=== PATIENT | female | born 1935 | race Caucasian/White ===

== ENCOUNTER 2016-09-09 16:48 | Emergency (ER) | payer OTHER, BC ==
[~2016-09-09] VITALS: Ht 154.9 cm; Wt 76.9 kg
[~2016-09-09 16:48] MED LIST: OMEPRAZOLE10 M1 PO; PERCOCET 5/31 TABLET PO; SIMVASTATIN20 MG PO; TRAMADOL HCL50 MG PO; ZOFRAN4 MG PO
[2016-09-09 18:15] LABS: HEMATOCRIT 36.7 % (36.0-46.0); MCH 29.1 PG (29.0-34.0); MCHC 32.7 G/DL (30.0-36.0); MCV 88.9 FL (83-99); MEAN PLAT.VOLUME 9.9 uM^3 (9.5-12.4); PLATELET COUNT 364 K/uL (156-360); RBC DIS.WIDTH-CV 13.9 % (11.8-14.6); RBC DIS.WIDTH-SD 45.2 % (39-53); RED BLOOD COUNT 4.13 M/uL (3.80-5.20); WHITE BLOOD COUNT 10.5 K/uL (4.1-10.2)
[2016-09-09 18:20] LABS: ADD MIUA? YES; BILIRUBIN NEGATIVE; BLOOD NEGATIVE; COLOR YELLOW ((YELLOW)); GLUCOSE (STRIP) NEGATIVE; KETONES 5; LEUKOCYTES MODERATE; NITRITE NEGATIVE; PROTEIN (STRIP) 30; SPECIFIC GRAVITY 1.015 (1.000-1.030); UROBILINOGEN 0.2 MG/DL (0.2-1.0)
[2016-09-09 18:25] LABS: CHLORIDE 100 mEq/L (99-109); POTASSIUM 3.6 mEq/L (3.7-5.4); SODIUM 137 mEq/L (136-147)
[2016-09-09 18:27] LABS: GLUCOSE 117 mg/dL (70-99)
[2016-09-09 18:29] LABS: ANION GAP 12 MEQ/L (2-14); TOTAL BILIRUBIN 0.8 mg/dL (0.0-1.0)
[2016-09-09 18:31] LABS: ALKALINE PHOSPHATASE 82 IU/L (3-129); GFR ESTIMATE (CALCULATED) 46 mL/min/
[2016-09-09 18:32] LABS: UREA NITROGEN (BUN) 12 mg/dL (9-23)
[2016-09-09 19:17] LABS: BACTERIA 2+ /HPF; EPITHELIAL CELLS 3+ /HPF; HYALINE CASTS 20-30 /LPF; MUCUS 4+ /LPF; UCUL ADDED? YES; WHITE BLOOD CELLS 30-40 /HPF (0-5)
[2016-09-09] MEDS ORDERED: LEVAQUIN750 MG PO (19:44)
[2016-09-09 21:26] VITALS: BP 169/79
== END 2016-09-09 21:27 | disposition home or self-care (01) ==
LOC: EME → EDBD 16:48 → EME 21:27
PROVIDERS: Emergency Medicine
DX: N39.0 Urinary tract infection, site not specified (principal); R55 Syncope and collapse
CPT/HCPCS: 71020; 80053; 81003; 85027; 87086; 93005; 99281; 99285; J0696; J7030; J7050